=== PATIENT | male | born 1990 | race Hispanic/Latino ===

== ENCOUNTER 2017-02-24 06:04 | Emergency (ER) | payer OTHER ==
[~2017-02-24] VITALS: Ht 177.8 cm; Wt 108.9 kg
[~2017-02-24 06:04] MED LIST: AUGMENTIN 875-1 EACH PO; IBUPROFEN800 M1 PO; ZITHROMAX250 M2 PO
[2017-02-24 06:24] VITALS: BP 153/86
--- NOTE | 2017-02-24 07:13 | ED GENERAL ADULT ---
History of Present Illness General Chief Complaint: Lower Extremity Injury Stated Complaint: LEFT LEG PAIN S/P SOFTBALL GAME YESTERDAY Source: patient Exam Limitations: no limitations Vital Signs & Intake/Output Vital Signs & Intake/Output Vital Signs Date Time Temp Pulse Resp B/P B/P Pulse O2 O2 Flow FiO2 Mean Ox Delivery Rate 02/24 738 98.2 02/24 627 Room Air 02/25 624 98.2 70 18 153/86 99 Room Air Allergies Coded Allergies: shellfish derived (Severe, ANAPHYLAXIS 02/24/17) Reconcile Medications Ibuprofen 600 MG TABLET 1 TAB PO TID PRN pain with food Triage Note: TRIAGE: PATIENT TO ER FORM HOME REPORTING +L ANKLE PAIN SHOOTING INTO L KNEE S/P SOFTBALL TOURNAMENT YESTERDAY, NO KNOWN INJURY TO SITE. PAIN 10/, INCREASED SINCE INITIAL ONSET YESTERDAY. Triage Nurses Notes Reviewed? yes Onset: Abrupt Duration: day(s): Timing: recent history HPI: 02/24/17 7:20 am 26-year-old male presents to the emergency department for left foot and left anterior leg pain. The patient was playing softball yesterday. 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 He does not recall any distinct trauma. However this morning he woke up with anterior leg pain and pain and swelling to the dorsal aspect of his left foot. The onset of the symptoms were abrupt, the duration was just the last 12 hours, the severity is significant; as his symptoms required him to come to the emergency department for care. He denies any associated injuries. Past History Travel History Traveled to [place] past 21 day No Medical History Any Pertinent Medical History? see below for history Neurological: NONE EENT: NONE Cardiovascular: NONE Respiratory: asthma Gastrointestinal: NONE Hepatic: NONE Renal: NONE Musculoskeletal: NONE Psychiatric: NONE Endocrine: NONE Blood Disorders: NONE Cancer(s): NONE Surgical History Surgical History: none Psychosocial History What is your primary language Georgian Tobacco Use: Refused to answer Family History Hx Contributory? No Review of Systems Review of Systems Constitutional: Denies: fever. EENTM: Reports: no symptoms. Respiratory: Reports: no symptoms. Cardiovascular: Reports: no symptoms. GI: Reports: no symptoms. Genitourinary: Reports: no symptoms. Musculoskeletal: Reports: see HPI. Skin: Reports: no symptoms. Neurological/Psychological: Reports: no symptoms. Hematologic/Endocrine: Reports: no symptoms. Physical Exam Physical Exam General Appearance: well developed/nourished, alert, awake, anxious, mild distress Head: atraumatic, normal appearance Eyes: Bilateral: normal appearance, PERRL, EOMI. Ears, Nose, Throat: normal ENT inspection Neck: normal inspection, supple Respiratory: normal breath sounds, chest non-tender, no respiratory distress Cardiovascular: regular rate/rhythm Peripheral Pulses: 4+ dorsalis pedis (L) Extremities: normal inspection, swelling, tenderness, left foot Neurologic/Psych: no motor/sensory deficits, awake, alert, oriented x 3 Skin: intact, normal color, warm/dry Comments: The patient has good capillary refill to the left foot (< 2 seconds). Palpable left dorsalis pedis pulse. He does have some swelling to the left midfoot. There was no calf tenderness. He has anterior tibial tenderness. He can dorsiflex and plantar flex the left foot but has limited range of motion secondary to pain. Core Measures ACS in differential dx? No CVA/TIA Diagnosis: No Severe Sepsis Present: No Septic Shock Present: No Progress Differential Diagnoses I considered the following diagnoses in my evaluation of the patient: [Fracture, dislocation, stress fracture, DVT, ligament injury, muscle strain, plantaris muscle rupture, anterior tibialis tendenitis, compartment syndrome] Plan of Care: Orders Procedure Date/time Status Durable Medical Equipment 02/24 737 Active Initial ED EKG: none Departure Departure Disposition: HOME OR SELF CARE Condition: Stable Clinical Impression Primary Impression: Anterior tibialis tendonitis of left leg Secondary Impressions: Leg pain, anterior Referrals: PATIENT HAS NO PRIMARY CARE DR (PCP/Family) Departure Forms: Customer Survey General Discharge Information Prescriptions: Current Visit Scripts Ibuprofen 1 TAB PO TID PRN pain #30 TAB with food Comments IMPRESSION: Normal radiographs of the left tibia and fibula and of the left foot. DICTATED BY: BENNY CLARK MD DATE/TIME DICTATED:02/24/17757 PROGRAM THERAPIST:SANCHEZ DATE/TIME TRANSCRIBED:02/24/17757 CONFIDENTIAL, DO NOT COPY WITHOUT APPROPRIATE AUTHORIZATION. <Electronically signed in Other Vendor System> SIGNED BY: BENNY CLARK MD 02/24/17 0804 Critical Care Note Critical Care Note Critical Care Time: non-applicable
[2017-02-24] MEDS ORDERED: IBUPROFEN600 M1 PO (07:39)
--- NOTE | 2017-02-24 08:04 | RADIOLOGY REPORT ---
EXAMINATION: XR FOOT, LEFT XR TIBIA AND FIBULA, LEFT CLINICAL INFORMATION: Left foot and left leg pain. Rule out fracture. COMPARISON: None TECHNIQUE: AP, lateral, and oblique views of the left foot and AP and lateral views of the left tibia and fibula. FINDINGS: Left tibia and fibula: No fracture or malalignment. Bone mineralization is normal. Joint space of the left ankle is normal. No osseous lesions. Soft tissues are unremarkable. Left foot: The bones and soft tissues are normal. No fracture. Alignment is anatomic. Joint spaces are maintained. IMPRESSION: Normal radiographs of the left tibia and fibula and of the left foot.
== END 2017-02-24 08:10 ==
LOC: ERH 06:04
DX: M76.812 Anterior tibial syndrome, left leg (principal); M79.605 Pain in left leg
CPT/HCPCS: 73590-LT; 73630-LT